=== PATIENT | male | born 1945 | race Caucasian/White ===

== ENCOUNTER 2020-07-05 13:41 | Outpatient (CLI) | payer MEDICARE, OTHER ==
[2020-07-05 13:58] LABS: Bilirubin Negative (Negative); Blood, Urine Moderate (Negative); Clarity Slightly Cloudy (Clear); Glucose, Urine (Dipstick) Negative (Negative); Ketone, Urine Negative (Negative); Leukocyte Moderate (Negative); Nitrite Positive (Negative); Protein, Urine (Dipstick) Negative (Neg-Trace); Urobilinogen 0.2 mg/dL (Less than 2)
[2020-07-05 14:04] LABS: Bacteria/HPF 4+ HPF (None Seen); Squamous Epithelial None Seen HPF (0-3); WBC/HPF Greater Than 50 HPF (0-3)
[2020-07-06 07:32] LABS: Ferritin 297.51 ng/mL (22-322)
== END 2020-07-05 13:42 | disposition home or self-care (01) ==
LOC: MADLAB 13:41
PROVIDERS: ATTEND Physician Assistant
DX: D64.9 Anemia, unspecified (principal); E11.42 Type 2 diabetes mellitus with diabetic polyneuropathy
CPT/HCPCS: 81001; 82607; 82728; 82746; 83540

== ENCOUNTER 2020-07-22 13:28 | Outpatient (CLI) | payer MEDICARE, OTHER ==
[2020-07-22 14:10] LABS: Bilirubin Negative (Negative); Blood, Urine Trace (Negative); Clarity Clear (Clear); Glucose, Urine (Dipstick) Negative (Negative); Ketone, Urine Negative (Negative); Leukocyte Negative (Negative); Nitrite Negative (Negative); Protein, Urine (Dipstick) Negative (Neg-Trace); Specific Gravity, Urine 1.025 (1.005-1.030); Urine Culture Reflex No No; Urobilinogen 0.2 mg/dL (Less than 2)
[2020-07-22 14:13] LABS: Bacteria/HPF Rare-Few HPF (None Seen); RBC/HPF 0-3 HPF (0-3); Squamous Epithelial 0-3 HPF (0-3); WBC/HPF 0-3 HPF (0-3)
== END 2020-07-22 13:29 | disposition home or self-care (01) ==
LOC: MADLAB 13:28
PROVIDERS: ATTEND Family Medicine
DX: I25.10 Atherosclerotic heart disease of native coronary artery without angina pectoris (principal); E11.42 Type 2 diabetes mellitus with diabetic polyneuropathy; I10 Essential (primary) hypertension; N39.0 Urinary tract infection, site not specified; R31.9 Hematuria, unspecified
CPT/HCPCS: 81001

== ENCOUNTER 2020-08-03 13:17 | Outpatient (CLI) | payer MEDICARE, OTHER ==
[2020-08-03 13:23] LABS: #Basophils 0.1 thou/uL (0.0-0.2); #Eosinphils 0.2 thou/uL (0.0-0.7); #Lymphocytes 1.4 thou/uL (1.20-3.40); #Monocytes 0.4 thou/uL (0.11-0.59); #Neutrophils 2.2 thou/uL (1.40-6.50); %Basophils 1.2 % (0.0-1.0); %Eosinophils 4.3 % (0.0-10.0); %Lymphocytes 33.5 % (21.0-51.0); %Monocytes 9.5 % (0.0-10.0); %Neutrophils 51.4 % (42.0-75.0); Hemoglobin 9.8 g/dL (14.0-18.0); Mean Corpuscular HGB CONC 31.5 g/dL (32.0-36.0); Mean Corpuscular Hemoglobin 29.5 pg (27.0-31.0); Mean Corpuscular Volume 93.6 fL (78.0-98.0); Mean Platelet Volume 10.5 fL (7.4-10.4); Platelet Count 125 thou/uL (130-400); RBC Distribution Width 14.3 % (11.5-14.5); Red Blood Cell (RBC) Count 3.31 mill/uL (4.70-6.10); White Blood Cell (WBC) Count 4.3 thou/uL (4.8-10.8)
== END 2020-08-03 13:18 | disposition home or self-care (01) ==
LOC: MADLAB 13:17
PROVIDERS: ATTEND Family Medicine
DX: N40.1 Benign prostatic hyperplasia with lower urinary tract symptoms (principal); D64.9 Anemia, unspecified
CPT/HCPCS: 85025; G0103

== ENCOUNTER 2020-08-09 15:02 | Outpatient (CLI) | payer MEDICARE, OTHER ==
[2020-08-09 16:30] LABS: INR-International Normal Ratio 1.3; Prothrombin Time 16.2 sec (12.0-14.7)
[2020-08-09 16:49] LABS: #Eosinphils 0.2 thou/uL (0.0-0.7); #Lymphocytes 1.5 thou/uL (1.20-3.40); #Monocytes 0.4 thou/uL (0.11-0.59); #Neutrophils 2.5 thou/uL (1.40-6.50); %Eosinophils 4.1 % (0.0-10.0); %Lymphocytes 31.6 % (21.0-51.0); %Monocytes 8.2 % (0.0-10.0); %Neutrophils 55.1 % (42.0-75.0); ALT (SGPT) 15 U/L (8-55); AST (SGOT) 20 U/L (5-34); Albumin 3.1 g/dL (3.4-4.8); Alkaline Phosphatase 58 U/L (40-110); Anion Gap 17 mmol/L (10-20); BUN (Urea Nitrogen) 18 mg/dL (8.4-25.7); Bilirubin, Total 0.4 mg/dL (0.2-1.2); Calc. Creatinine Clearance 0 mL/min (70-130); Calcium 7.8 mg/dL (7.8-10.44); Carbon Dioxide 22 mmol/L (23-31); Chloride 108 mmol/L (98-107); Globulin 2.4 g/dL (2.4-3.5); Glucose 131 mg/dL (83-110); Hemoglobin 10.2 g/dL (14.0-18.0); Large Platelets SLIGHT; MDiff Complete? YES; Mean Corpuscular HGB CONC 31.4 g/dL (32.0-36.0); Mean Corpuscular Hemoglobin 29.3 pg (27.0-31.0); Mean Corpuscular Volume 93.4 fL (78.0-98.0); Mean Platelet Volume 9.2 fL (7.4-10.4); Platelet Count 120 thou/uL (130-400); Platelet Morphology Comment Appears Decreased; Potassium 3.6 mmol/L (3.5-5.1); Protein, Total 5.5 g/dL (5.8-8.1); RBC Distribution Width 13.8 % (11.5-14.5); Red Blood Cell (RBC) Count 3.47 mill/uL (4.70-6.10); Sodium 143 mmol/L (136-145); Uric Acid 5.7 mg/dL (3.5-7.2); White Blood Cell (WBC) Count 4.6 thou/uL (4.8-10.8)
[2020-08-09 20:56] LABS: Reticulocyte Count 1.8 % (0.5-1.5)
[2020-08-10 00:20] LABS: Iron 83 ug/dL (65-175); Iron Binding Capacity, Total 230 mcg/dL (261-462)
== END 2020-08-09 15:03 | disposition home or self-care (01) ==
LOC: MADLAB 15:02
PROVIDERS: ATTEND Family Medicine
DX: E78.5 Hyperlipidemia, unspecified (principal); E11.42 Type 2 diabetes mellitus with diabetic polyneuropathy; D64.9 Anemia, unspecified; I10 Essential (primary) hypertension
CPT/HCPCS: 80053; 82607; 82746; 83540; 83550; 83615; 84550; 85025; 85046; 85060; 85610

== ENCOUNTER 2020-11-23 14:34 | Outpatient (CLI) | payer MEDICARE, OTHER ==
[2020-11-23 14:59] LABS: Anion Gap 13 mmol/L (10-20); BUN (Urea Nitrogen) 12 mg/dL (8.4-25.7); Calc. Creatinine Clearance 0 mL/min (70-130); Calcium 7.6 mg/dL (7.8-10.44); Carbon Dioxide 26 mmol/L (23-31); Chloride 106 mmol/L (98-107); Glucose 104 mg/dL (83-110); Potassium 3.5 mmol/L (3.5-5.1); Sodium 141 mmol/L (136-145)
== END 2020-11-23 14:35 | disposition home or self-care (01) ==
LOC: MADLAB 14:34
PROVIDERS: ATTEND Specialist
DX: I12.9 Hypertensive chronic kidney disease with stage 1 through stage 4 chronic kidney disease, or unspecified chronic kidney disease (principal); E11.22 Type 2 diabetes mellitus with diabetic chronic kidney disease; N18.9 Chronic kidney disease, unspecified; D63.1 Anemia in chronic kidney disease
CPT/HCPCS: 80048

== ENCOUNTER 2022-01-02 12:11 | Outpatient (CLI) | payer MEDICARE, OTHER ==
[2022-01-02 13:10] LABS: ALT (SGPT) 20 U/L (8-55); AST (SGOT) 20 U/L (5-34); Alkaline Phosphatase 90 U/L (40-110); Anion Gap 15 mmol/L (10-20); BUN (Urea Nitrogen) 21 mg/dL (8.4-25.7); Bilirubin, Total 1.1 mg/dL (0.2-1.2); Calc. Creatinine Clearance 0 mL/min (70-130); Calcium 8.8 mg/dL (7.8-10.44); Carbon Dioxide 18 mmol/L (23-31); Cardiac Risk 2.1 (Less than 4.5); Chloride 113 mmol/L (98-107); Cholesterol 79 mg/dl (< 200 Desired); Glucose 101 mg/dL (83-110); HDL Cholesterol 37 mg/dL (>60 Neg Risk); LDL Cholesterol, Calculated 24 mg/dL; Magnesium 1.8 mg/dL (1.6-2.6); Sodium 142 mmol/L (136-145); Triglycerides 89 mg/dL (Less than 150)
[2022-01-02 14:06] LABS: #Basophils 0.1 thou/uL (0.0-0.2); #Eosinphils 0.2 thou/uL (0.0-0.7); #Lymphocytes 1.4 thou/uL (1.20-3.40); #Monocytes 0.5 thou/uL (0.11-0.59); #Neutrophils 4.5 thou/uL (1.40-6.50); %Basophils 1.2 % (0.0-1.0); %Eosinophils 3.1 % (0.0-10.0); %Lymphocytes 20.3 % (21.0-51.0); %Monocytes 7.2 % (0.0-10.0); %Neutrophils 68.3 % (42.0-75.0); Hemoglobin 13.2 g/dL (14.0-18.0); Mean Corpuscular HGB CONC 31.6 g/dL (32.0-36.0); Mean Corpuscular Hemoglobin 29.2 pg (27.0-31.0); Mean Corpuscular Volume 92.5 fL (78.0-98.0); Mean Platelet Volume 12.6 fL (7.4-10.4); Platelet Count 135 thou/uL (130-400); RBC Distribution Width 12.5 % (11.5-14.5); Red Blood Cell (RBC) Count 4.49 mill/uL (4.70-6.10); White Blood Cell (WBC) Count 6.5 thou/uL (4.8-10.8)
[2022-01-02 14:20] LABS: Anisocytosis SLIGHT = 6-15 cells (100X) (0-5/hpf)
[2022-01-02 14:21] LABS: Platelet Morphology Comment Appears Adequate
[2022-01-02 16:05] LABS: Hemoglobin A1c 5.2 % (4.0-6.0)
== END 2022-01-02 12:12 | disposition home or self-care (01) ==
LOC: MADLAB 12:11
PROVIDERS: ATTEND Family Medicine
DX: R06.00 Dyspnea, unspecified (principal); I63.50 Cerebral infarction due to unspecified occlusion or stenosis of unspecified cerebral artery; I48.91 Unspecified atrial fibrillation; E11.59 Type 2 diabetes mellitus with other circulatory complications; E78.5 Hyperlipidemia, unspecified; R79.0 Abnormal level of blood mineral
CPT/HCPCS: 36415; 71045; 80053; 80061; 82306; 83036; 83735; 83970; 85025